=== PATIENT | male | born 1995 | race Caucasian/White ===

== ENCOUNTER 2020-01-07 22:21 | Emergency (ER) | payer OTHER ==
[~2020-01-07] VITALS: Ht 177.8 cm; Wt 61.2 kg
[~2020-01-07 22:21] MED LIST: RXCEPH250S PO; RXCODACESY PO
[2020-01-07] MEDS ORDERED: BUDESONIDE 3 MG PO (22:40)
[2020-01-07] MEDS ORDERED: IMIP10 PO (22:40)
[2020-01-07 23:11] LABS: BASOPHILS ABSOLUTE AUTO 0.03 K/mm3 (0.00-0.23); BASOPHILS PERCENT AUTO 0 % (0-2); EOSINOPHILS ABSOLUTE AUTO 0.05 K/mm3 (0.00-0.68); EOSINOPHILS PERCENT AUTO 1 % (0-6); Hematocrit 45.2 % (37.0-53.0); Hemoglobin 15.4 g/dL (13.5-17.5); IMMATURE GRAN ABSOLUTE AUTO 0.03 K/mm3 (0.00-0.10); IMMATURE GRAN PERCENT AUTO 0 % (0-1); LYMPHOCYTES ABSOLUTE AUTO 2.16 K/mm3 (0.84-5.20); LYMPHOCYTES PERCENT AUTO 26 % (21-46); MONOCYTES ABSOLUTE AUTO 0.56 K/mm3 (0.16-1.47); MONOCYTES PERCENT AUTO 7 % (4-13); Mean Corpuscular HGB 31.6 pg (26.0-34.0); Mean Corpuscular HGB Conc 34.1 g/dL (31.5-36.5); Mean Corpuscular Volume 93 fL (80-100); Mean Platelet Volume 10.3 fL (9.1-12.4); NEUTROPHILS ABSOLUTE AUTO 5.62 K/mm3 (1.96-9.15); NEUTROPHILS PERCENT AUTO 66 % (41-73); Platelet Count 166 K/mm3 (150-400); RDW Coefficient Variation 11.6 % (11.7-14.2); RDW Standard Deviation 39.2 fL (35.1-46.3); Red Blood Cell Count 4.87 M/mm3 (4.30-5.90); White Blood Cell Count 8.45 K/mm3 (4.00-11.30)
[2020-01-07 23:29] LABS: Alanine Aminotransfer (ALT/SGP 22 U/L (12-78); Albumin, Blood 4.2 g/dL (3.4-5.0); Albumin/Globulin Ratio 1.4 (0.8-1.8); Alk Phos 71 U/L (50-136); Anion Gap 5 mmol/L (6-16); Aspartate Aminotrans (AST/SGOT 15 U/L (12-37); Bilirubin, Total 0.9 mg/dL (0.1-1.0); Blood Urea Nitrogen 14 mg/dL (8-24); Bun/Creatinine Ratio 16.5 (12.0-20.0); CO2, Blood 30 mmol/L (21-32); Calcium, Blood 9.3 mg/dL (8.5-10.1); Chloride, Blood 105 mmol/L (98-108); Creatinine, Blood 0.85 mg/dL (0.60-1.20); Glomerular Filtration Rate >60 (60-); Glucose, Blood 120 mg/dL (70-99); Potassium, Blood 3.4 mmol/L (3.5-5.5); Sodium, Blood 140 mmol/L (136-145); Total Protein, Blood 7.2 g/dL (6.4-8.2)
[2020-01-08 00:27] LABS: Appearance, Urine Cloudy (Clear); Bilirubin, Urine Neg (Neg); Blood, Urine Neg (Neg); Color, Urine Yellow (P-Yellow); Glucose Qualitative, Urine Neg (Neg); Ketones, Urine Neg (Neg); Leukocyte Esterase, Urine Neg (Neg); Nitrite, Urine Neg (Neg); Protein, Urine Neg (Neg); Source, Urine Clean Catch; Specific Gravity, Urine 1.015 (1.003-1.022); Urobilinogen, Urine NORM (Normal)
[2020-01-08 00:38] LABS: Amorphous Heavy (0-Heavy); Bacteria Not Seen /hpf; Red Blood Cells, Urine Not Seen /hpf (0-2); Squamous Epithelial Cells Not Seen /hpf (Few); White Blood Cells, Urine Not Seen /hpf (0-5)
[2020-01-08] MEDS ORDERED: IBUP600 PO (00:49)
[2020-01-08] MEDS ORDERED: ONDA4 PO (00:49)
[2020-01-08] MEDS ORDERED: PROM25 PO (00:49)
== END 2020-01-08 01:08 | disposition home or self-care (01) ==
LOC: ER 22:21
PROVIDERS: Emergency Medicine
DX: G43.909 Migraine, unspecified, not intractable, without status migrainosus (principal); Z91.010 Allergy to peanuts; Z91.048 Other nonmedicinal substance allergy status
CPT/HCPCS: 36415; 80053; 81001; 85025; 96374; 96375; 99284-25; J1885; J2550; J7030

== ENCOUNTER 2020-01-08 01:18 | Emergency (ER) | payer OTHER ==
[~2020-01-08] VITALS: Ht 177.8 cm; Wt 61.2 kg
[~2020-01-08 01:18] MED LIST changes: +BUDESONIDE 3 MG PO; +IBUP600 PO; +IMIP10 PO; +ONDA4 PO; +PROM25 PO
== END 2020-01-08 05:11 | disposition home or self-care (01) ==
LOC: ER 01:18
DX: R55 Syncope and collapse (principal); G43.909 Migraine, unspecified, not intractable, without status migrainosus; T50.905A Adverse effect of unspecified drugs, medicaments and biological substances, initial encounter; Z88.6 Allergy status to analgesic agent; Z91.010 Allergy to peanuts; Z91.048 Other nonmedicinal substance allergy status; Z79.899 Other long term (current) drug therapy
CPT/HCPCS: 93005; 93010; 96360; 99283-25; J7030